=== PATIENT | male | born 1980 | race Caucasian/White ===

== ENCOUNTER 2022-01-07 14:43 | Emergency (ER) | payer OTHER ==
[~2022-01-07] VITALS: Ht 170.2 cm; Wt 73.9 kg
[2022-01-07 15:06] VITALS: BP 124/92
[2022-01-07 15:50] LABS: BASOPHILS # (AUTO) 0.1 K/uL (0.00-0.22); BASOPHILS % (AUTO) 1.2 % (0.0-2.0); EOSINOPHILS # (AUTO) 0.2 K/uL (0-0.4); EOSINOPHILS % (AUTO) 3.1 % (0.0-4.0); HEMATOCRIT 47.4 % (36-52); LYMPHOCYTES # (AUTO) 2.2 K/uL (2.0-11.5); LYMPHOCYTES % (AUTO) 33.1 % (20.5-51.1); MEAN CORPUSCULAR HEMOGLOBIN 30 pg (27-31); MEAN CORPUSCULAR HGB CONC 34 g/dL (33-37); MEAN CORPUSCULAR VOLUME 90.3 fL (80-94); MONOCYTES # (AUTO) 0.6 K/uL (0.8-1.0); MONOCYTES % (AUTO) 9.3 % (1.7-9.3); NEUTROPHILS # (AUTO) 3.5 K/uL (1.8-7.7); NEUTROPHILS % (AUTO) 53.3 % (42.2-75.2); PLATELET COUNT (AUTO) 302 K/uL (140-450); RED BLOOD CELL COUNT(AUTO) 5.25 MIL/uL (4.20-6.10); RED CELL DISTRIBUTION WIDTH 13.7 % (11.6-13.7); WHITE BLOOD COUNT (AUTO) 6.5 K/uL (4.8-10.8)
[2022-01-07 15:52] LABS: PROTHROMBIN TIME 10.1 secs (10.8-13.4)
[2022-01-07 15:54] LABS: ANION GAP 13.8 (8-16); CARBON DIOXIDE 26.6 mmol/L (21-32); CREATININE 1.1 mg/dL (0.6-1.3); POTASSIUM 3.4 mmol/L (3.5-5.1); TOTAL BILIRUBIN 0.4 mg/dL (0.0-1.0)
--- NOTE | 2022-01-07 18:27 | NUR ---
PATIENT LEFT W/O D/C WORK/INSTRUCTIONS.
== END 2022-01-07 18:27 | disposition home or self-care (01) ==
LOC: MED 14:43
DX: K92.2 Gastrointestinal hemorrhage, unspecified (principal); F10.10 Alcohol abuse, uncomplicated; Y90.9 Presence of alcohol in blood, level not specified
CPT/HCPCS: 36415; 80053; 83690; 85025; 85610; 85730; 99283

== ENCOUNTER 2022-10-07 16:00 | Emergency (ER) | payer OTHER ==
[~2022-10-07] VITALS: Ht 172.7 cm; Wt 65.8 kg
[2022-10-07 16:02] VITALS: BP 145/78
--- NOTE | 2022-10-07 16:37 | NUR ---
UPDATED CHARLIE MOODY, RESPONSIBLE LIBERTARIAN, OF PATIENTS CONDITION. REQUESTING TO CALL BACK ONCE PATIENT IS DISCHARGED, SHE WILL BE RIDE BACK HOME.
--- NOTE | 2022-10-07 17:25 | NUR ---
UPDATED ISIDRO, RESPONSIBLE CONSTITUTION PARTY THAT PATIENT LEFT FACILITY.
== END 2022-10-07 20:02 | disposition left against medical advice (07) ==
LOC: MED 16:00
DX: F10.129 Alcohol abuse with intoxication, unspecified (principal); Z53.21 Procedure and treatment not carried out due to patient leaving prior to being seen by health care provider; Y90.9 Presence of alcohol in blood, level not specified
CPT/HCPCS: 99281

== ENCOUNTER 2022-10-22 18:30 | Emergency (ER) | payer OTHER ==
[~2022-10-22] VITALS: Ht 167.6 cm; Wt 63.5 kg
[2022-10-22 18:38] VITALS: BP 126/101
--- NOTE | 2022-10-22 18:44 | NUR ---
INFORMED BRITTANY OF POISON CONTROL THAT PT ADMITS TO TAKING ALL PILLS OF A 90 COUNT BOTTLE OF ATORVASTATIN 40 MG AROUND 4 PM TODAY. WALKED IN WITH HIS MOTHER AND YOUNG DAUGHTER, MOM SHOWED EMPTY BOTTLE. PER PT, "I TOOK IT COZ I WAS DEPRESSED. I STILL DRINK EVERYDAY" PER POISON CONTROL, CHECK LABS- CMP, TYLE, ASA, ALCOHOL, DRUG SCREEN LEVELS, NO NEED TO MONITOR PT AFTER LAB RESULTS ARE OK. DR PETER AWARE.
--- NOTE | 2022-10-22 18:52 | NUR ---
42 Y/O MALE BIB [facility] DRUG INGESTION ATORVASTATIN UNSURE HOW MANY PILLS, NV BLOOD AFTER INGESTION, POOR APPETITE, AND ALCHOL USE NKA PMH: DEPRESSION, HTN, HEPERLIPIDEMIA
--- NOTE | 2022-10-22 19:02 | NUR ---
LAB AT BEDSIDE.
[2022-10-22 19:13] LABS: BASOPHILS % (AUTO) 0.3 % (0.0-2.0); EOSINOPHILS # (AUTO) 0.1 K/uL (0-0.4); EOSINOPHILS % (AUTO) 1.3 % (0.0-4.0); HEMATOCRIT 49.6 % (36-52); HEMOGLOBIN 16.6 g/dL (12.0-18.0); LYMPHOCYTES # (AUTO) 2.7 K/uL (2.0-11.5); MEAN CORPUSCULAR HEMOGLOBIN 31 pg (27-31); MEAN CORPUSCULAR HGB CONC 34 g/dL (33-37); MONOCYTES # (AUTO) 0.5 K/uL (0.8-1.0); NEUTROPHILS # (AUTO) 3.9 K/uL (1.8-7.7); NEUTROPHILS % (AUTO) 54.4 % (42.2-75.2); PLATELET COUNT (AUTO) 494 K/uL (140-450); RED BLOOD CELL COUNT(AUTO) 5.39 MIL/uL (4.20-6.10); RED CELL DISTRIBUTION WIDTH 12.6 % (11.6-13.7); WHITE BLOOD COUNT (AUTO) 7.2 K/uL (4.8-10.8)
--- NOTE | 2022-10-22 19:16 | NUR ---
PT PERSONAL ITEMS REMOVED BAGGED AND LABELED. PT WEARING HOSPITAL GOWN, SOCKS PROVIDED. COOPERATIVE WITH CARE. APPEARS WITH A FLAT AFFECT, UNDERSTANDS SAFETY PROTOCOL INITIATED DUE TO HIS ACTION THAT IS HARMFUL TO HIS LIFE. ADMITS TO TAKING ALL THE PILL, DOES NOT ANSWER WHEN ASKED IF HE INTENDS TO HARM HIMSELF BUT ANSWERS "I AM DEPRESSED"
--- NOTE | 2022-10-22 19:18 | NUR ---
GAVE REPORT TO ALIA DU.
[2022-10-22] MEDS ORDERED: NACL 0.9% 2,000 ML IV ONE (19:25)
[2022-10-22 19:27] LABS: ALBUMIN 4.3 g/dL (3.4-5.0); ANION GAP 15.8 (8-16); ASPARTATE AMINOTRANSFERASE 88 U/L (15-37); CARBON DIOXIDE 28.1 mmol/L (21-32); CHLORIDE 104 mmol/L (98-107); GFR ARICAN-AMERICAN 106 mL/min (>90); GLUCOSE 122 mg/dL (74-106); POTASSIUM 3.9 mmol/L (3.5-5.1); SODIUM SERUM 144 mmol/L (136-145); TOTAL BILIRUBIN 0.3 mg/dL (0.0-1.0); UREA NITROGEN, BLOOD 3 mg/dL (7-18)
[2022-10-22 19:28] LABS: ACETAMINOPHEN < 0.5 ug/ml (10-30); SALICYLATE < 2.8 mg/dL (2.8-20.0)
--- NOTE | 2022-10-22 19:30 | NUR ---
RECEIVED PT ON BED, AOX4, NOT IN DISTRESS. PT. ATTACHED TO INBOUND CALL CENTER REPRESENTATIVE
--- NOTE | 2022-10-22 20:00 | NUR ---
INSERTED IV G20 AT LEFT HAND
--- NOTE | 2022-10-22 20:55 | NUR ---
SEEN PT. VOMITTED. REFERRED TO DR. PETER
--- NOTE | 2022-10-22 21:08 | NUR ---
PT IS ON TELE PSYCHE EVALUATION
--- NOTE | 2022-10-22 21:11 | NUR ---
DR. MEDRANO CALLED AND SPOKE WITH DR. PETER
--- NOTE | 2022-10-22 21:39 | NUR ---
Dr. Aranda examining patient.
--- NOTE | 2022-10-22 22:03 | NUR ---
[place] [employer] AT BEDSIDE
--- NOTE | 2022-10-22 22:36 | NUR ---
[place] OFFICER SPEAKING WITH DR. DAVILA
--- NOTE | 2022-10-22 22:55 | NUR ---
DR. MEDRANO SPOKE WITH [place] [employer] OFFICER ERLIN
--- NOTE | 2022-10-22 23:00 | NUR ---
AFTER [place] MORALES SPOKE WITH PSYCHIATRIST, DECISION WAS MADE NOT TO WRITE 5150 AT THIS TIME. PT. WILL CONTINUE TO BE OBSERVED IN ER DUE TO HIGH ALCOHOL LEVEL. AND PT. WILL BE EVALUATED IN AM
--- NOTE | 2022-10-23 00:51 | NUR ---
RESTING WITH EYES CLOSE
[2022-10-23 06:06] LABS: APPEARANCE,URINE CLEAR (CLEAR); BILIRUBIN,URINE NEGATIVE (NEGATIVE); BLOOD, URINE NEGATIVE (NEGATIVE); COLOR,URINE YELLOW (YELLOW); LEUKOCYTE ESTERASE ,URINE NEGATIVE (NEGATIVE); NITRITE, URINE NEGATIVE (NEGATIVE); UGLUCOSE NEGATIVE (NEGATIVE)
[2022-10-23 06:31] LABS: BARBITURATE, URINE NEGATIVE ng/ml (NEG <=200); BENZODIAZEPINE, URINE NEGATIVE ng/mL (NEG <=200); CANNABINOID, URINE NEGATIVE ng/mL (NEG <=50); COCAINE, URINE NEGATIVE ng/mL (NEG <=300); OPIATE, URINE NEGATIVE ng/mL (NEG <=2000); PHENCYCLIDINE SCREEN,URINE NEGATIVE ng/mL (NEG <=25)
--- NOTE | 2022-10-23 07:20 | NUR ---
Report recieved from FLORIAN Dailey for transfer of care.
--- NOTE | 2022-10-23 08:36 | NUR ---
Lab at bedside.
--- NOTE | 2022-10-23 08:55 | NUR ---
Updated Dr. Friedman on patients condition. will call back around 15 minutes.
--- NOTE | 2022-10-23 09:22 | NUR ---
Dr. Friedman evaluating patient via Telepsych.
--- NOTE | 2022-10-23 09:29 | NUR ---
Per Dr. Friedman, patient is ok to go home. Dr. Hernandez made aware.
[2022-10-23] MEDS ORDERED: LORA-476 PO (09:52)
--- NOTE | 2022-10-23 10:13 | NUR ---
Called Fani, to inform her of patient being discharged. She says she is on her way.
[2022-10-23 10:26] VITALS: BP 136/90
--- NOTE | 2022-10-23 10:26 | NUR ---
Patient discharged with v/s stable. Written and verbal after care instructions given. Patient alert, oriented and verbalized understanding of instructions. Ambulatory with steady gait. All questions addressed prior to discharge. ID band removed. Patient advised to follow up with PMD. Rx of Ativan given. Opportunity to ask questions provided and answered.
--- NOTE | 2022-10-23 10:28 | NUR ---
The patient's care was reviewed and supervised by Luisa Barnes, RN, RN.
== END 2022-10-23 10:26 | disposition home or self-care (01) ==
LOC: MED 18:30
DX: R45.851 Suicidal ideations (principal); T46.6X2A Poisoning by antihyperlipidemic and antiarteriosclerotic drugs, intentional self-harm, initial encounter; F10.29 Alcohol dependence with unspecified alcohol-induced disorder; I10 Essential (primary) hypertension; F32.A Depression, unspecified; E78.5 Hyperlipidemia, unspecified; Y90.9 Presence of alcohol in blood, level not specified; Y92.89 Other specified places as the place of occurrence of the external cause
CPT/HCPCS: 36415; 80053; 80305; 81003; 85025; 93005; 96360; 96361; 99285; G0480; G0482; J7030

== ENCOUNTER 2022-11-09 16:32 | Emergency (ER) | payer OTHER ==
[~2022-11-09] VITALS: Ht 167.6 cm; Wt 59.0 kg
[~2022-11-09 16:32] MED LIST: LORA-476 PO
[2022-11-09 16:33] VITALS: BP 134/91
--- NOTE | 2022-11-09 16:42 | NUR ---
PER REGISTRATION, STATED HIS MOM SAID HE TRIED TO COMMITT SUICIDE. PT STATED HE DID NOT TRY TO COMMITT SUICIDE.
--- NOTE | 2022-11-09 16:44 | NUR ---
PT SMELLS OF ALCOHOL
--- NOTE | 2022-11-09 16:48 | NUR ---
[facility] in [facility] - 11/09/22 at 1649 by [facility] PT AMB TO BED 4
--- NOTE | 2022-11-09 16:48 | NUR ---
PT AMB TO BED 3
--- NOTE | 2022-11-09 16:49 | NUR ---
MD KOHLI AT BEDSIDE FOR EVALUATION
--- NOTE | 2022-11-09 17:06 | NUR ---
WOUND TO POSTERIOR SCALP IRRIGATED WITH BETADINE x NS
--- NOTE | 2022-11-09 17:10 | NUR ---
PT REFUSING TDAP. MADE AWARE
--- NOTE | 2022-11-09 17:10 | NUR ---
Patient discharged with v/s stable. Written and verbal after care instructions FOR [facility] given and explained. Patient verbalized understanding. Ambulatory with steady gait. All questions addressed prior to discharge. Advised to follow up with PMD.
--- NOTE | 2022-11-09 17:17 | NUR ---
The patient's care was reviewed and supervised by ED Agency Nurse 9, RN, RN.
== END 2022-11-09 17:10 | disposition home or self-care (01) ==
LOC: MED 16:32
DX: S01.01XA Laceration without foreign body of scalp, initial encounter (principal); I10 Essential (primary) hypertension; Z79.899 Other long term (current) drug therapy; W01.0XXA Fall on same level from slipping, tripping and stumbling without subsequent striking against object, initial encounter; Y93.89 Activity, other specified; Y92.89 Other specified places as the place of occurrence of the external cause; Y99.8 Other external cause status
CPT/HCPCS: 90715; 99282